=== PATIENT | female | born 1960 | race Caucasian/White ===

== ENCOUNTER 2016-11-02 15:10 | Observation (INO) ==
--- NOTE | 2016-11-02 15:47 | EKG Report ---
Test Performed on : 11/02/2016 3:30:27 PM Test Reason : CP Blood Pressure : / mmHG Vent. Rate : 083 BPM Atrial Rate : 083 BPM P-R Int : 160 ms QRS Dur : 084 ms QT Int : 380 ms P-R-T Axes : 047 -25 065 degrees QTc Int : 446 ms Normal sinus rhythm. Possible Left atrial enlargement Borderline ECG No previous ECGs available Unconfirmed Result
[2016-11-02] MEDS ORDERED: ZOFRAN IV ONE (17:42)
[2016-11-02] MEDS ORDERED: G.I. COCKTAIL PO ONE (17:42)
[2016-11-02] MEDS ORDERED: MORPHINE IV ONE (17:42)
[2016-11-02] MEDS ORDERED: TORADOL IV ONE (17:42)
[2016-11-02] MEDS ORDERED: ASPIRIN PO ONE (17:42)
--- NOTE | 2016-11-02 18:05 | PROVIDER DOCUMENTATION ---
This chart was entered by Ishan Gracia Scribe, acting as scribe for Fransisco Woods MD. HPI-General Adult - General Source: patient - History of Present Illness -Gen Adult Nature of Presenting Problems: Patient is a 55 y/o F that presents to the ER after developed intermitted shortness of breath, left side chest pain, body aches, fever/chills. patient has had several episodes of it today. She reports having a recent CT of Chest and PFT's to rule out COPD. patient reports pain last 5 to 10 minutes. Location of Pain/Injury: reports: chest (left) Quality of Pain: reports: aching, pressure Severity: reports: moderate Onset/Duration: reports: abrupt, this morning Timing: reports: still present, intermittent Context/Activities at Onset: reports: none Modifying Factors: improves with: nothing Associated Symptoms: reports: chest pain, cough, fever/chills, muscle aches, shortness of breath. denies: back/neck pain, diaphoresis, diarrhea, dizziness, genitourinary problems, nausea, vomiting, weakness Recently seen or treated by another doctor?: No <Fransisco Woods - Last Filed: 11/02/16 18:05> - General Source: patient - History of Present Illness -Gen Adult Location of Pain/Injury: reports: chest Pain Radiation: reports: no radiation Quality of Pain: reports: aching, pressure Onset/Duration: reports: abrupt, this morning Timing: reports: still present, intermittent Context/Activities at Onset: reports: none Modifying Factors: improves with: nothing Associated Symptoms: reports: chest pain, cough, fever/chills, muscle aches, shortness of breath Recently seen or treated by another doctor?: No <Uche Story - Last Filed: 12/01/16 05:50> - General Chief Complaint: Cold Symptoms Stated Complaint: SOB Time Seen by Provider: 11/02/16 17:15 Allergies/Adverse Reactions: Patient Allergies Allergy/AdvReac Type Severity Reaction Status Date / Time CT CONTRAST DYE Allergy HIVES Uncoded 11/02/16 15:34 Home Medications: Home Medication List Medication Instructions Recorded Confirmed Last Taken Type Atorvastatin Calcium 10 mg PO DAILY 11/02/16 11/02/16 11/02/16 History Citalopram [Celexa] 20 mg PO DAILY 11/02/16 11/02/16 11/02/16 History Levothyroxine Sodium 125 mcg PO DAILY 11/02/16 11/02/16 11/02/16 History Oxybutynin [Ditropan] 5 mg PO DAILY 11/02/16 11/02/16 11/02/16 History Review of Systems - Adult - REVIEW OF SYSTEMS - ADULT Constitutional: reports: chills, fever Eyes: reports: no symptoms reported Ears, Nose, Mouth & Throat: denies: ear pain, sinus problem, throat pain Cardiovascular: reports: chest pain. denies: palpitations, syncope Respiratory: reports: shortness of breath. denies: cough, wheezing Gastrointestinal: denies: abdominal pain, diarrhea, nausea, vomiting Genitourinary: reports: no symptoms reported Musculoskeletal: reports: muscle aches. denies: neck pain Integumentary: reports: no symptoms reported Neurological: denies: dizziness/vertigo, headache/migraines, seizure Psychiatric: reports: no symptoms reported Endocrine: reports: no symptoms reported Hematologic/Lymphatic: reports: no symptoms reported Allergic/Immunologic: reports: no symptoms reported All Other Systems: Reviewed and Negative <Fransisco Woods - Last Filed: 11/02/16 18:05> - REVIEW OF SYSTEMS - ADULT Constitutional: reports: chills, fever Eyes: reports: no symptoms reported Ears, Nose, Mouth & Throat: reports: no symptoms reported Cardiovascular: reports: no symptoms reported Respiratory: reports: shortness of breath Gastrointestinal: reports: no symptoms reported Genitourinary: reports: no symptoms reported Musculoskeletal: reports: muscle aches Integumentary: reports: no symptoms reported Neurological: reports: no symptoms reported Psychiatric: reports: no symptoms reported Endocrine: reports: no symptoms reported Hematologic/Lymphatic: reports: no symptoms reported Allergic/Immunologic: reports: no symptoms reported All Other Systems: Reviewed and Negative <Uche Story - Last Filed: 12/01/16 05:50> Past History - Adult - PAST MEDICAL HISTORY-ADULT Review of Records: reports: Old Records Reviewed, Nursing Assessment Review, Medications Reviewed Cardiovascular: reports: hyperlipidemia Endocrine/Immune: reports: thyroid disorder ([place]) - PRIOR SURGERIES/PROCEDURES Surgical/Procedure History: reports: appendectomy, cholecystectomy, hysterectomy , , orthopedic (extremity), back/neck - IMMUNIZATION STATUS Childhood Immunizations: See Nurse Assessment Flu Vaccine: See Nurse Assessment - FAMILY HISTORY Family History: reviewed, not pertinent - SOCIAL HISTORY Smoking: quit greater than 1 year, cigarettes Alcohol Use Frequency: occasionally Living Situation: family <Fransisco Woods - Last Filed: 11/02/16 18:05> - PAST MEDICAL HISTORY-ADULT Review of Records: reports: Old Records Reviewed, Nursing Assessment Review, Medications Reviewed Major Childhood Illnesses: reports: denies history Cardiovascular: reports: hyperlipidemia Respiratory: reports: denies history Gastrointestinal: reports: denies history Obstetrical/Gynecological: reports: denies history Genitourinary: reports: denies history Musculoskeletal: reports: denies history Neurological: reports: denies history Endocrine/Immune: reports: thyroid disorder Other Conditions: reports: denies history - PRIOR SURGERIES/PROCEDURES Surgical/Procedure History: reports: appendectomy, cholecystectomy, hysterectomy , , orthopedic (extremity), back/neck - IMMUNIZATION STATUS Childhood Immunizations: See Nurse Assessment Flu Vaccine: See Nurse Assessment - FAMILY HISTORY Family History: reviewed, not pertinent - SOCIAL HISTORY Smoking: quit greater than 1 year, cigarettes Alcohol Use Frequency: occasionally Living Situation: family <Uceh Story - Last Filed: 12/01/16 05:50> Physical Exam-General - PHYSICAL EXAM-ADULT Initial Vital Signs Reviewed: Yes - CONSTITUTIONAL General Appearance: alert, no apparent distress, anxious - EYES Eyes: PERRL/EOMI, pink conjunctivae - HEAD, EARS, NOSE, MOUTH & THROAT HENMT: normocephalic/atraumatic, moist mucous membranes, normal ENT inspection - NECK Neck: full range of motion - CARDIOVASCULAR Cardiovascular: regular rate, rhythm, no edema - GASTROINTESTINAL (ABDOMEN) Abdominal Exam: normal bowel sounds, soft, no organomegaly, no pulsatile mass, tenderness (LUQ, epigastric). negative: distended, rigid - MUSCULOSKELETAL Back Exam: CVA tenderness (mild left), vertebral tenderness (left of t12) Extremity: normal range of motion, normal inspection, no pedal edema, normal capillary refill <Fransisco Woods - Last Filed: 11/02/16 18:05> - PHYSICAL EXAM-ADULT Initial Vital Signs Reviewed: Yes - CONSTITUTIONAL General Appearance: alert, moderate distress, anxious - EYES Eyes: PERRL/EOMI, pink conjunctivae - HEAD, EARS, NOSE, MOUTH & THROAT HENMT: normocephalic/atraumatic, moist mucous membranes, normal ENT inspection - NECK Neck: full range of motion - RESPIRATORY Respiratory: decreased breath sounds - CARDIOVASCULAR Cardiovascular: regular rate, rhythm, no edema - GASTROINTESTINAL (ABDOMEN) Abdominal Exam: normal bowel sounds, soft, no organomegaly, tenderness - MUSCULOSKELETAL Back Exam: CVA tenderness, vertebral tenderness Extremity: normal range of motion, normal inspection, no pedal edema, normal capillary refill - SKIN Integumentary: normal color - NEUROLOGIC Neurologic: grossly normal, no motor/sensory deficits - PSYCHIATRIC Psych/Mental Status: normal mood/affect, normal thought content, normal thought process <Uche Story - Last Filed: 12/01/16 05:50> Progress - PLAN OF CARE/RESULTS Progress/Plan/Lab Results: Vital Signs - 8 hr 11/02/16 15:15 11/02/16 15:33 11/02/16 16:10 Temperature 98.8 F Pulse Rate 89 82 78 Respiratory Rate 20 17 15 Blood Pressure 160/127 160/101 144/92 O2 Sat by Pulse Oximetry 98 96 96 11/02/16 16:52 Temperature Pulse Rate 77 Respiratory Rate 22 Blood Pressure 156/88 O2 Sat by Pulse Oximetry 97 Orders Category Date Time Status EKG [EKG] Stat Ther 11/02/16 15:43 Draft - EKG 1 Time of EKG reading by physician:: 15:32 EKG Read and Signed by:: Fransisco Woods EKG Interpretation (*Must complete 3 of following elements*): Abnormal Rate: 83 Rhythm: NSR [place]: normal QRS: poor R wave progression ST Wave: normal Comments: LAE - CHANGE OF SHIFT REPORT (ED Provider) Report Given and Care Transferred to:: Time of Transfer: 18:00 Items Pending: Labs, XRAY Results <Fransisco Woods - Last Filed: 11/02/16 18:05> - PLAN OF CARE/RESULTS Progress/Plan/Lab Results: Vital Signs - 8 hr 11/02/16 15:15 11/02/16 15:33 11/02/16 16:10 Temperature 98.8 F Pulse Rate 89 82 78 Respiratory Rate 20 17 15 Blood Pressure 160/127 160/101 144/92 O2 Sat by Pulse Oximetry 98 96 96 11/02/16 16:15 11/02/16 16:30 11/02/16 16:52 Temperature Pulse Rate 71 73 77 Respiratory Rate 28 H 17 22 Blood Pressure 153/93 156/88 156/88 O2 Sat by Pulse Oximetry 96 98 97 11/02/16 17:00 11/02/16 17:30 11/02/16 17:45 Temperature Pulse Rate 75 76 83 Respiratory Rate 22 30 H 20 Blood Pressure 156/96 O2 Sat by Pulse Oximetry 97 95 96 11/02/16 18:15 11/02/16 18:30 11/02/16 18:45 Temperature Pulse Rate 79 83 86 Respiratory Rate 25 H 20 15 Blood Pressure 129/67 155/77 150/78 O2 Sat by Pulse Oximetry 98 95 95 11/02/16 19:24 11/02/16 19:45 Temperature Pulse Rate 77 78 Respiratory Rate 19 19 Blood Pressure 117/74 122/90 O2 Sat by Pulse Oximetry 96 96 Laboratory Results - last 24 hr 11/02/16 11/02/16 11/02/16 18:08 18:08 18:08 WBC 11.49 H RBC 4.35 Hgb 13.0 Hct 39.5 MCV 90.8 MCH 29.9 MCHC 32.9 L RDW Std Deviation 12.9 Plt Count 286 MPV 10.3 Immature Gran % (Auto) 0.2 Neut % (Auto) 66.1 Lymph % (Auto) 23.0 [place] % (Auto) 6.7 Eos % (Auto) 3.6 Baso % (Auto) 0.4 Immature Gran # (Auto) 0.02 Neut # (Auto) 7.60 H Lymph # (Auto) 2.64 [place] # (Auto) 0.77 H Eos # (Auto) 0.41 Baso # (Auto) 0.05 PT INR D-Dimer Sodium 139 Potassium 3.8 Chloride 101 Carbon Dioxide 29 Anion Gap 9 BUN 7 L Creatinine 0.8 Estimated GFR/1.73 m2 > 60 BUN/Creatinine Ratio 9 Glucose 104 Calculated Osmolality 276 Calcium 9.0 Total Bilirubin 0.50 AST 27 ALT 25 Alkaline Phosphatase 124 H Troponin T Gdj-W-Yjddlckhdjj Pept 95 Total Protein 7.7 Albumin 4.3 Globulin 3.0 Albumin/Globulin Ratio 1.0 Lipase 34 11/02/16 11/02/16 11/02/16 18:08 18:08 18:08 WBC RBC Hgb Hct MCV MCH MCHC RDW Std Deviation Plt Count MPV Immature Gran % (Auto) Neut % (Auto) Lymph % (Auto) [place] % (Auto) Eos % (Auto) Baso % (Auto) Immature Gran # (Auto) Neut # (Auto) Lymph # (Auto) [place] # (Auto) Eos # (Auto) Baso # (Auto) PT 13.2 INR 0.93 D-Dimer 0.62 H Sodium Potassium Chloride Carbon Dioxide Anion Gap BUN Creatinine Estimated GFR/1.73 m2 BUN/Creatinine Ratio Glucose Calculated Osmolality Calcium Total Bilirubin AST ALT Alkaline Phosphatase Troponin T < 0.010 Uxt-C-Qomkbtlnhvy Pept Total Protein Albumin Globulin Albumin/Globulin Ratio Lipase Orders Category Date Time Status CHEST-2 VIEWS [RAD] Stat Exams 11/02/16 17:[address] ANGIOGRM/PULMONARY ARTERIES [CT] Stat Exams 11/02/16 20:00 Ordered CBC WITH ELECTRONIC DIFF [HEME] Stat Lab 11/02/16 18:08 Completed COMPREHENSIVE METABOLIC PANEL [CHEM] Stat Lab 11/02/16 18:08 Com[address] D-DIMER PL [COAG] Stat Lab 11/02/16 18:08 Completed LIPASE [CHEM] Stat Lab 11/02/16 18:08 Completed PRO B-NATRIURETIC PEPTIDE Stat Lab 11/02/16 18:08 Completed [address]IME WITH INR PL [COAG] Stat Lab 11/02/16 18:08 Completed TROPONIN T Stat Lab 11/02/16 18:[address] W/POSS RFLX CULT [URINALYSIS] Stat Lab 11/02/16 19:35 Received Aspirin Med 11/02/16 17:42 Discontinued 325 mg PO NOW ONE Ketorolac [Toradol] Med 11/02/16 17:42 Discontinued 30 mg IV NOW ONE Lido/Segura Alk/Al&mg Hydrox [G.i. Cocktail] Med 11/02/16 17:42 Discontinued 30 ml PO NOW ONE Morphine Med 11/02/16 17:42 Discontinued 4 mg IV NOW ONE Ondansetron [Zofran] Med 11/02/16 17:42 Discontinued 4 mg IV NOW ONE EKG [EKG] Stat Ther 11/02/16 15:43 Draft Result Diagrams: 11/02/16 18:08 11/02/16 18:08 - REASSESSMENT Reassessment #1 Time Reassessed: 20:00 Status: unchanged (stable. allergic to dye so will need to admit for VQ scan) Reassessment #2 Time Reassessed: 21:31 Status: unchanged (discussed with , and patient, findings and need for admission to r/o PE) - XRAY 1 XRAY Study: Chest (questionable haziness left base o/w normal. DDimer elevated will get Pulm angiogram.) <Uche Story - Last Filed: 12/01/16 05:50> Departure <Fransisco Woods - Last Filed: 11/02/16 18:05> - Departure Date of Disposition Decision: 11/02/16 Time of Disposition Decision: 21:32 Certified Medical Emergency: Emergent - Critical Care Note This patient required my direct & personal management of CC.: No <Uche Story - Last Filed: 12/01/16 05:50> - Departure DIAGNOSIS: SOB (shortness of breath) Disposition: ADMITTED INPATIENT 09 Condition: Stable Attestation - Physician/ ELROY Attestation The physician spent face to face time with patient:: Yes Advanced Practice Provider documentation review:: Supervising physician onsite and consulted in the evaluation and care of this patient. The physician did have a face to face encounter with the patient. <Fransisco Woods - Last Filed: 11/02/16 18:05> - Physician/ ELROY Attestation Patient care was provided by Advanced Practice Provider:: Yes Advanced Practice Provider documentation review:: The Mid-level provider documentation, treatment plan and medical decision making was reviewed by the physician who agrees with all treatment and medical decision making by the P. The physician spent face to face time with patient:: Yes Advanced Practice Provider documentation review:: Supervising physician onsite and consulted in the evaluation and care of this patient. The physician did have a face to face encounter with the patient. <Uche Story - Last Filed: 12/01/16 05:50> This chart was documented by the indicated scribe, (Ishan Gracia Scribe) and accurately reflects the services I performed and decisions made by me, Fransisco Woods MD, as attested by the provider's signature.
[2016-11-02 18:12] LABS: MANUAL DIFF NEEDED? NO
[2016-11-02 18:15] LABS: BASO% 0.4 % (0.0-0.8); EOS# 0.41 X1000 (0.0-0.7); EOS% 3.6 % (0.0-10.0); HEMATOCRIT 39.5 % (37.0-47.0); IMM GRAN# 0.02 X1000 (0.0-0.04); IMM GRAN% 0.2 % (0.0-0.5); LYMPH# 2.64 X1000 (1.2-3.4); MCH 29.9 PG (27-31); MCHC 32.9 g/dL (33-37); MCV 90.8 FL (81-99); MONO# 0.77 X1000 (0.11-0.59); MONO% 6.7 % (1.7-9.3); MPV 10.3 FL (7.4-10.4); NEUT% 66.1 % (42.2-75.2); PLT 286 X1000 (130-400); RBC 4.35 XMIL (4.2-5.4)
[2016-11-02 18:28] LABS: AGAP 9; ALBUMIN 4.3 g/dL (3.5-5.0); ALKALINE PHOSPHATASE 124 U/L (32-104); BUN 7 mg/dL (8-22); CHLORIDE 101 mmol/L (98-107); COSMO 276; GOT 27 U/L (10-30); GPT 25 U/L (10-36); LIPASE 34 U/L (13-60); POTASSIUM 3.8 mmol/L (3.5-5.1); SODIUM 139 mmol/L (136-145); TCO2 29 mmol/L (25-35); TOTAL PROTEIN 7.7 g/dL (6.3-8.3)
[2016-11-02 18:33] LABS: INR 0.93 (0.86-1.15); PROTIME 13.2 Seconds (12.1-15.5)
[2016-11-02 19:43] LABS: URINE CULTURE PL NEEDED? NO
[2016-11-02 20:03] LABS: BILIRUBIN URINE NEGATIVE (NEGATIVE); BLOOD URINE NEGATIVE (NEGATIVE); CLARITY CLEAR (CLEAR); COLOR YELLOW; GLUCOSE URINE NEGATIVE (NEGATIVE); LEUKOCYTES URINE NEGATIVE (NEGATIVE); NITRITE URINE NEGATIVE (NEGATIVE); PH URINE 6.5; PROTEIN URINE NEGATIVE (NEGATIVE); SP GRAVITY URINE 1.015; UROBILINOGEN URINE 1+(1 mg/dL)
[2016-11-02 20:15] LABS: URINE SOURCE CLEAN CATCH
[2016-11-02 20:16] LABS: URINE EPITHELIAL CELLS <10 /HPF (<10); URINE RBC <10 /HPF (<10); URINE WBC <10 /HPF (<10)
--- NOTE | 2016-11-02 20:18 | Diag Imaging Result Doc PS360 ---
CHEST-2 VIEWS - 11/02/2016 INDICATION: short of breath TECHNIQUE: COMPARISON: 10/14/2016 FINDINGS: The lungs are normally expanded and clear. Heart size and mediastinal contours are normal. No pneumothorax or pleural effusion. IMPRESSION: Negative exam. Electronically signed by Malik Felder 11/02/2016 8:15 PM
[2016-11-02 20:57] LABS: BE 2.8 mmoll (-3.0-3.0); BLOOD TYPE ARTERIAL; DRAW SITE L RADIAL; METHB 1.4 % (0.0-1.5); O2(CT) 18.1 mL/dL (15.0-23.0); PCO2(98.6) 40 mmHg (35-45); PO2(98.6) 78 mmHg (60-100); SAMPLE BLOOD; SAO2 98.2 % (95.0-100.0); THB 13.6 g/dL (11.5-17.4); pH(98.6) 7.44 (7.35-7.45)
[2016-11-02 20:58] LABS: ALLEN TEST YES; MODALITY ROOM AIR
[2016-11-02] MEDS ORDERED: LOVENOX 1 MG/KG SUBQ ONE (21:28)
[2016-11-02] MEDS ORDERED: ROCEPHIN 1 GM in NS 50 ML IV ONE (21:29)
[2016-11-02] MEDS ORDERED: NS 1,000 ML IV ONE (21:35)
[2016-11-02] MEDS ORDERED: ZOFRAN IV PRN (21:35)
[2016-11-02] MEDS ORDERED: LOVENOX ONE (21:38)
--- NOTE | 2016-11-02 22:03 | EKG Report ---
Test Performed on : 11/02/2016 10:00:13 PM Test Reason : CP Blood Pressure : / mmHG Vent. Rate : 074 BPM Atrial Rate : 074 BPM P-R Int : 170 ms QRS Dur : 080 ms QT Int : 420 ms P-R-T Axes : 035 -32 046 degrees QTc Int : 466 ms Normal sinus rhythm. Possible Left atrial enlargement Left axis deviation Left ventricular hypertrophy Abnormal ECG When compared with ECG of 02-NOV-2016 15:30, (Unconfirmed) No significant change was found Unconfirmed Result
--- NOTE | 2016-11-03 09:29 | Diag Imaging Result Doc PS360 ---
EXAM: LUNG SCAN / VQ HISTORY: sob hypoxia elevated ddimer TECHNIQUE: Perfusion images were obtained following the IV administration of 6.1 mCi technetium 99 MAA. Ventilatory images were obtained during the inhalation of 40.3 mCi technetium DTPA. COMPARISON: None. FINDINGS: Both ventilation and perfusion images show no abnormalities. No V/Q mismatches. No evidence for acute pulmonary embolism. IMPRESSION: Normal study. No evidence for acute PE. Electronically signed by Nova Lawson 11/03/2016 9:26 AM
[2016-11-03 14:05] VITALS: BP 115/50
--- NOTE | 2016-11-03 14:59 | HISTORY AND PHYSICAL ---
CHIEF COMPLAINT: Shortness of breath and left-sided chest pain. HISTORY OF PRESENT ILLNESS: This is a 55-year-old female who presented to the emergency room complaining of shortness of breath, dyspnea on exertion, left-sided chest pain with subjective fever and chills. She reports these episodes of chest pain and shortness of breath intermittently throughout the day. She describes this pain as an aching-type pain that increases with movement and shortness of breath and it does decrease somewhat with rest. She does state that although she has had spells like this in the past. This has lasted longer so, therefore, she presented for further evaluation. Chest x-ray revealed normal lungs with a negative exam. She was found to have a D-dimer of 0.62. She was given a mg/kg of Lovenox and admitted for further evaluation and treatment. PAST MEDICAL HISTORY: Jc's thyroid. PAST SURGICAL HISTORY: Appendectomy, cholecystectomy, section, hysterectomy. SOCIAL HISTORY: She denies tobacco or illicit drug use. She does drink socially. ALLERGIES: CT contrast which causes hives. HOME MEDICATIONS: 1. Celexa 20 mg daily. 2. Levothyroxine 125 mcg daily. 3. Atorvastatin 10 mg daily. 4. Ditropan 5 mg daily. REVIEW OF SYSTEMS: A 14-point review of systems is discussed with the patient with pertinent positives stated in HPI. She denied syncope dizziness, PND, orthopnea, nausea, vomiting, diarrhea, constipation, black or bloody vomitus, black or bloody stools, hematuria, dysuria. PHYSICAL EXAMINATION: GENERAL: This is a 55-year-old female who is sitting in the bed in no distress. VITAL SIGNS: Blood pressure is 107/53 with a heart rate of 69, respirations are 16, temperature is 97.9 oral with room air saturations of 97%. HEENT: Head is normocephalic, atraumatic. Pupils equal, round, react to light. EOMs are intact. Sclerae anicteric. Mucous membranes are moist. NECK: Supple. Trachea midline. CARDIOVASCULAR: Regular rate and rhythm. S1 and S2 appreciated. PULMONARY: Breath sounds are clear. No increased work of breathing noted. GASTROINTESTINAL: Abdomen is soft, nondistended. She has epigastric tenderness with bowel sounds in all 4 quadrants. EXTREMITIES: No clubbing, cyanosis, or edema. Calves nontender. Pulses are palpable x4. NEUROLOGIC: She is alert and oriented x3. DIAGNOSTICS: EKG revealed sinus rhythm at a rate of 83. Chest x-ray was a negative exam. The lungs are normally expanded and clear. Heart size and mediastinal contours are normal. No pneumothorax or pleural effusion. LABORATORY DATA: WBC is 11.4 with hemoglobin 13, hematocrit 39, and platelets of 286,000. D- dimer 0.62. Sodium is 139, potassium 3.8. BUN 7, creatinine 0.8, with a glucose of 104. Troponins are negative on multiple occasions. Urinalysis is essentially negative. ASSESSMENT AND PLAN: 1. Shortness of breath. 2. Leukocytosis. 3. Elevated D-dimer. 4. Jc's thyroiditis. The patient will be admitted to the hospital and placed on telemetry. We will get a V/Q scan as she is allergic to contrast dye. We will identify her home medications and continue as appropriate. Further treatments pending hospital course. Dictated by BRIAN Marin for Jack Sevilla MD cc: BRIAN Marin MD
[2016-11-04] MEDS ORDERED: SYNTHROID PO SCH ×2 (07:00)
[2016-11-04] MEDS ORDERED: LIPITOR PO SCH (09:00)
[2016-11-04] MEDS ORDERED: CELEXA PO SCH (09:00)
[2016-11-04] MEDS ORDERED: DITROPAN PO SCH (09:00)
--- NOTE | 2016-11-05 17:19 | DISCHARGE SUMMARY ---
ADMISSION DATE: 11/02/2016 DISCHARGE DATE: 11/03/2016 DIAGNOSES: 1. Shortness of breath. 2. Elevated D-dimer with a lung scan with low probability for pulmonary embolus. 3. Leukocytosis. 4. Jc's thyroiditis. DIAGNOSTICS: 1. 11/02/2016 chest x-ray was a negative exam. Lungs normally expanded and clear. Heart size and mediastinal contours are normal. No pneumothorax or pleural effusion. 2. 11/02/2016 lung scan V/Q revealed normal study, no evidence for PE. HOSPITAL COURSE: Ms. Warner presented to the hospital complaining of shortness of breath and left- sided chest pain. She was found to have an elevated D-dimer. She was initially given 1 mg per kg of Lovenox in the emergency room. She underwent a V/Q scan which revealed no pulmonary embolus. Her chest pain did resolve and did not recur. Thankfully she is ready for discharge. She did rule out by troponins, as well EKG showed sinus rhythm with no ST-T changes. DISCHARGE PHYSICAL EXAMINATION: Cardiovascular: Regular rate and rhythm. S1, S2 appreciated. Pulmonary: Breath sounds clear with no increased work of breathing noted. Gastrointestinal: Abdomen is soft, nontender, nondistended with bowel sounds in all 4 quadrants. Extremities: No clubbing, cyanosis, or edema. Calves nontender, and pulses palpable x4. Neurologic: She is alert and oriented x3. Cranial nerves 2-12 grossly intact. Vital Signs: Blood pressure is 115/50 with a heart rate of 60, respirations 16, temperature 98.3 degrees, with a room air saturations of 97%-99%. DISCHARGE MEDICATIONS: 1. Celexa 20 mg daily. 2. Levothyroxine 125 mcg daily. 3. Atorvastatin 10 mg daily. 4. Ditropan 5 daily. DISCHARGE DIET: Healthy heart. DISCHARGE ACTIVITY: As tolerated. FOLLOWUP: She is to follow up with Dr. Taylor Tidwell in 1-2 weeks, sooner if needed. DISPOSITION: She is being discharged home in stable condition with family members. TIME SPENT: This is a greater than 30 minute discharge. Dictated by BRIAN Marin for Jack Sevilla MD cc: BRIAN Marin MD
--- NOTE | 2016-11-18 10:10 | Extremity Venous Study ---
EXAM: Venous U/S Bilateral Legs HISTORY: DYSPNEA,ELEVATED DDIMER WITH NEG VQ SCAN TECHNIQUE: [place] scale, color Doppler, and duplex evaluation was performed. COMPARISON: None. FINDINGS: The deep veins of the bilateral lower extremities demonstrate appropriate compressibility and augmentation. No intraluminal thrombus is visualized. There is no evidence for DVT. The superficial veins appear patent. IMPRESSION: No evidence for deep venous thrombosis bilateral lower extremities. Electronically signed by Nova Lawson 11/03/2016 4:02 PM
== END 2016-11-03 19:15 | disposition home or self-care (01) ==
LOC: P.ED 15:10 → INTOOBSV 15:11 → P.MEDSURG 15:11
PROVIDERS: ATTEND Family Medicine